=== PATIENT | female | born 1960 | race African-American/Black ===

== ENCOUNTER → 2018-04-02 20:00 | Outpatient (CLI) | payer BC, MEDICARE | END | disposition home or self-care (01) | LOC: D.MAMMO 02-26 11:00 | DX: Z12.31 Encounter for screening mammogram for malignant neoplasm of breast (principal) ==

== ENCOUNTER 2019-10-13 08:00 | Outpatient (CLI) | payer BC, MEDICARE | END 2019-10-13 23:59 | disposition home or self-care (01) | LOC: D.MAMMO 08:00 | PROVIDERS: ATTEND Obstetrics & Gynecology | DX: Z12.31 Encounter for screening mammogram for malignant neoplasm of breast (principal) ==